=== PATIENT | female | born 1960 | race Caucasian/White ===

== ENCOUNTER 2017-03-10 07:49 | Day surgery (SDC) | payer BC ==
[~2017-03-10] VITALS: Ht 162.6 cm; Wt 133.8 kg
[~2017-03-10 07:49] MED LIST: ALLOPURINOL100 MG PO; BAL B-1001 EACH PO; CINNAMON500 MG PO; CLOBETASOL PROP60 GM TP; COQ-10100 MG PO; CYCLOBENZAPRINE10 MG PO; DICLOFENAC SOD150 ML TP; DICYCLOMINE HCL20 MG PO; FISH OIL 1,0001 EAC7 PO; FUROSEMIDE20 MG PO; HUMALOG KW200 UNIT/1 SC; LEVEMIR FL100 UNIT/1 SC; LYRICA150 MG PO; MAGOX 400400 MG PO; MITIGARE0.6 MG PO; NIACIN FLUSH F1 EACH PO; PERCOCET 5/31 TABLET PO; PRAVASTATIN SOD40 MG PO; RANITIDINE HCL150 MG PO; TERAZOL 745 GM VG; TOUJEO SOL300 UNIT/1 SC; TYLENOL EXTRA500 MG PO; ULORIC40 MG PO; VALIUM5 MG PO; VICTOZA0.6 MG/0.1 SC; VITAMIN D31000 UNIT PO; VOLTAREN 0.1%2.5 ML BOTH EYES; VOLTAREN 1% GE100 GM TP; XARELTO10 MG PO
[2017-03-10 08:40] VITALS: BP 165/83
[2017-03-10 09:03] LABS: POINT-OF-CARE METER ID UU14174212
[2017-03-10 15:23] LABS: POINT-OF-CARE METER ID UU13113675
[2017-03-10 19:00] VITALS: BP 157/72
[2017-03-10 19:24] VITALS: BP 154/76
[2017-03-10 23:16] VITALS: BP 138/72
[2017-03-11 03:40] VITALS: BP 131/63
[2017-03-11 06:51] LABS: POINT-OF-CARE METER ID UU14162508
[2017-03-11 08:54] VITALS: BP 134/63
[2017-03-11 11:25] VITALS: BP 135/61
== END 2017-03-11 14:19 | disposition home or self-care (01) ==
LOC: SDC 07:49 → EDSTATUS 13:08 → 2SOUTH 13:08 → SDC 13:10 → 2SOUTH 14:30 → 2EASTP 16:01
PROVIDERS: Podiatrist Foot & Ankle Surgery
DX: M21.41 Flat foot [pes planus] (acquired), right foot (principal); M66.371 Spontaneous rupture of flexor tendons, right ankle and foot; M19.071 Primary osteoarthritis, right ankle and foot; E11.9 Type 2 diabetes mellitus without complications; Z88.0 Allergy status to penicillin; Z88.1 Allergy status to other antibiotic agents; Z79.01 Long term (current) use of anticoagulants; Z79.4 Long term (current) use of insulin
CPT/HCPCS: 73630; 73650; 76000; 82948; C1713; G0378; J1170; J1650; J1815; J2250; J3010; S0020